=== PATIENT | female | born 1990 | race Caucasian/White ===

== ENCOUNTER 2021-08-29 17:45 | Inpatient (IN) | payer MEDICAID, SELFPAY ==
[~2021-08-29] VITALS: Ht 175 cm; Wt 120.0 kg
[2021-08-29 19:25] LABS: BASOPHILS % (AUTO) 0.2 % (0.0-2.0); EOSINOPHILS % (AUTO) 0.3 % (0.0-4.0); HEMATOCRIT 35.7 % (36-48); HEMOGLOBIN 11.9 g/dL (12.0-16.0); LYMPHOCYTES # (AUTO) 1.7 K/uL (2.5-16.5); LYMPHOCYTES % (AUTO) 17.1 % (20.5-51.1); MEAN CORPUSCULAR HEMOGLOBIN 29 pg (27-31); MEAN CORPUSCULAR HGB CONC 34 g/dL (33-37); MEAN CORPUSCULAR VOLUME 85.1 fL (80-94); MONOCYTES # (AUTO) 0.6 K/uL (0.8-1.0); MONOCYTES % (AUTO) 6.5 % (1.7-9.3); NEUTROPHILS # (AUTO) 7.3 K/uL (1.8-7.7); NEUTROPHILS % (AUTO) 75.9 % (42.2-75.2); PLATELET COUNT (AUTO) 246 K/uL (140-450); RED CELL DISTRIBUTION WIDTH 15.1 % (11.6-13.7); WHITE BLOOD COUNT (AUTO) 9.7 K/uL (4.8-10.8)
[2021-08-29 19:27] LABS: APPEARANCE,URINE HAZY (CLEAR); BILIRUBIN,URINE NEGATIVE (NEGATIVE); BLOOD, URINE NEGATIVE (NEGATIVE); COLOR,URINE YELLOW (YELLOW); LEUKOCYTE ESTERASE ,URINE 1+ (NEGATIVE); NITRITE, URINE POSITIVE (NEGATIVE); UGLUCOSE NEGATIVE (NEGATIVE)
[2021-08-29 19:34] LABS: WBC,URINE 16-25 (MOD) /HPF (0-5)
[2021-08-29 19:35] LABS: BARBITURATE, URINE NEGATIVE ng/ml (NEG <=200); BENZODIAZEPINE, URINE NEGATIVE ng/mL (NEG <=200); CANNABINOID, URINE NEGATIVE ng/mL (NEG <=50); COCAINE, URINE NEGATIVE ng/mL (NEG <=300); OPIATE, URINE NEGATIVE ng/mL (NEG <=2000); PHENCYCLIDINE SCREEN,URINE NEGATIVE ng/mL (NEG <=25)
[2021-08-29 19:41] LABS: ALBUMIN 2.8 g/dL (3.4-5.0); ANION GAP 15.8 (8-16); CARBON DIOXIDE 20.8 mmol/L (21-32); CREATININE 0.6 mg/dL (0.6-1.3); POTASSIUM 3.6 mmol/L (3.5-5.1); TOTAL BILIRUBIN 0.3 mg/dL (0.0-1.0)
[2021-08-29] MEDS: LACTATED RINGERS 1,000 ML IV SCH (23:57)
[2021-08-30 00:56] VITALS: BP 133/65
[2021-08-30] MEDS: LACTATED RINGERS 1,000 ML IV SCH ×3 (05:53→14:14)
[2021-08-30] MEDS ORDERED: ROPIVACAINE 0.2%/NS PREMIX 200 ML EPI ONE (06:42)
[2021-08-30] MEDS ORDERED: ROPIVACAINE 0.2%/NS PREMIX 100 ML EPI SCH (07:00)
--- NOTE | 2021-08-30 08:58 | NUR ---
PATIENT HAS BEEN SCREENED AND CATEGORIZED LOW NUTRITION RISK. PATIENT WILL BE SEEN WITHIN 7 DAYS OF ADMISSION. 09/05/[address]
[2021-08-30] MEDS ORDERED: OXYTOCIN 20 UNITS in LACTATED RINGERS 1,000 ML IV SCH (09:10)
[2021-08-30] MEDS ORDERED: OXYTOCIN 10 UNITS/ML VIAL IM SCH (09:10)
[2021-08-30] MEDS ORDERED: MISOPROSTOL 100 MCG TAB PO PRN (09:10)
[2021-08-30] MEDS ORDERED: METHYLERGONOVINE 0.2 MG/ML AMP IM PRN ×2 (09:10→15:15)
[2021-08-30] MEDS ORDERED: CARBOPROST 250 MCG/ML AMP IM PRN (09:10)
[2021-08-30] MEDS ORDERED: OXYTOCIN 20 UNITS/LR PREMIX 1,000 ML IV ONE (09:16)
[2021-08-30] MEDS ORDERED: MISOPROSTOL 200 MCG TAB ONE (14:23)
[2021-08-30] MEDS ORDERED: OXYTOCIN 10 UNITS/ML VIAL IM PRN (15:15)
[2021-08-30] MEDS ORDERED: MEASLES, MUMPS, AND RUBELLA 1 VIAL SQVAC ONE (15:15)
[2021-08-30] MEDS ORDERED: METHYLERGONOVINE 0.2 MG TAB PO PRN (15:15)
[2021-08-30] MEDS ORDERED: BENZOCAINE/MENTHOL 20%-0.5% 60 GM CAN TP PRN (15:15)
[2021-08-30] MEDS ORDERED: MEASLES, MUMPS, AND RUBELLA 1 VIAL SQVAC SCH (15:30)
[2021-08-30] MEDS ORDERED: MEASLES, MUMPS, AND RUBELLA 1 VIAL SQVAC PRN (15:30)
[2021-08-30] MEDS: bisacodyL 5 MG TABEC PO SCH (21:11)
[2021-08-30] MEDS ORDERED: FLU VACCINE QS2021-22 0.5 ML SYR IMVAC ONE (22:40)
[2021-08-31 09:00] LABS: BASOPHILS % (AUTO) 0.3 % (0.0-2.0); EOSINOPHILS # (AUTO) 0.1 K/uL (0-0.4); EOSINOPHILS % (AUTO) 0.6 % (0.0-4.0); HEMATOCRIT 33.6 % (36-48); HEMOGLOBIN 11.2 g/dL (12.0-16.0); LYMPHOCYTES # (AUTO) 1.8 K/uL (2.5-16.5); MEAN CORPUSCULAR HEMOGLOBIN 29 pg (27-31); MEAN CORPUSCULAR HGB CONC 33 g/dL (33-37); MEAN CORPUSCULAR VOLUME 85.6 fL (80-94); MONOCYTES # (AUTO) 0.8 K/uL (0.8-1.0); MONOCYTES % (AUTO) 8.1 % (1.7-9.3); NEUTROPHILS # (AUTO) 7.3 K/uL (1.8-7.7); PLATELET COUNT (AUTO) 204 K/uL (140-450); RED BLOOD CELL COUNT(AUTO) 3.93 MIL/uL (4.20-5.40); RED CELL DISTRIBUTION WIDTH 15.3 % (11.6-13.7)
[2021-08-31 09:13] LABS: ANION GAP 14.6 (8-16); CARBON DIOXIDE 24.3 mmol/L (21-32); CREATININE 0.7 mg/dL (0.6-1.3); POTASSIUM 3.9 mmol/L (3.5-5.1)
[2021-08-31] MEDS: bisacodyL 5 MG TABEC PO SCH (20:53)
[2021-09-01] MEDS ORDERED: IBUPROFEN 800 MG TAB PO PRN (06:40)
[2021-09-01] MEDS ORDERED: IBUPROFEN 800 MG TAB ONE (06:44)
== END 2021-09-01 16:15 | disposition home or self-care (01) | DRG 560 ==
LOC: MLD 17:45 → OBSVTOIN 21:56 → MFCC 08-30 20:00
PROVIDERS: ADMIT Obstetrics & Gynecology; ATTEND Obstetrics & Gynecology
PROC: 10E0XZZ Delivery of Products of Conception, External Approach (ICD-10-PCS; principal; 2021-08-30)
PROC: 3E0R3BZ Introduction of Anesthetic Agent into Spinal Canal, Percutaneous Approach (ICD-10-PCS; 2021-08-30)
PROC: 00HU33Z Insertion of Infusion Device into Spinal Canal, Percutaneous Approach (ICD-10-PCS; 2021-08-30)
PROC: 3E0P7VZ Introduction of Hormone into Female Reproductive, Via Natural or Artificial Opening (ICD-10-PCS; 2021-08-30)
PROC: 3E033VJ Introduction of Other Hormone into Peripheral Vein, Percutaneous Approach (ICD-10-PCS; 2021-08-30)
DX: O77.0 Labor and delivery complicated by meconium in amniotic fluid (principal); Z37.0 Single live birth; O75.3 Other infection during labor; O70.0 First degree perineal laceration during delivery; Z20.822 Contact with and (suspected) exposure to COVID-19; N39.0 Urinary tract infection, site not specified; Z3A.40 40 weeks gestation of pregnancy
CPT/HCPCS: G0378 ×4; 36415; 51702; 59409; 76805; 80048; 80053; 80305; 81001; 85025; 86592; 86762; 86886; 86900; 86901; 87086; 87340; 87653-90; 90715; J2210; J2590; J2795; J3490; Q0092